=== PATIENT | male | born 1955 | race Caucasian/White ===

== ENCOUNTER 2020-03-20 11:20 | Day surgery (SDC) | payer MEDICARE, BC ==
[~2020-03-20] VITALS: Ht 182.9 cm; Wt 104.5 kg
[~2020-03-20 11:20] MED LIST: CELE100 PO; OMEP20ER PO
[2020-03-20] MEDS ORDERED: Loratadine10 MG PO (11:50)
== END 2020-03-20 14:25 | disposition home or self-care (01) ==
LOC: ORSCSDS 11:20
PROVIDERS: Podiatrist
PROC: 0SNQ0ZZ Release Left Toe Phalangeal Joint, Open Approach (ICD-10-PCS; principal; 2020-03-20 12:30)
PROC: 0QSP04Z Reposition Left Metatarsal with Internal Fixation Device, Open Approach (ICD-10-PCS; principal; 2020-03-20 12:30)
PROC: 0L8W0ZZ Division of Left Foot Tendon, Open Approach (ICD-10-PCS; principal; 2020-03-20 12:30)
DX: M77.42 Metatarsalgia, left foot (principal); M20.42 Other hammer toe(s) (acquired), left foot; Z87.891 Personal history of nicotine dependence; K21.9 Gastro-esophageal reflux disease without esophagitis; Z79.899 Other long term (current) drug therapy; G47.33 Obstructive sleep apnea (adult) (pediatric)
CPT/HCPCS: C1713; J0690; J1100; J2250; J2405; J2704; J3010; J7120

== ENCOUNTER 2022-12-15 11:03 | Day surgery (SDC) | payer MEDICARE, BC ==
[~2022-12-15] VITALS: Ht 182.9 cm; Wt 104.4 kg
[~2022-12-15 11:03] MED LIST changes: +Loratadine10 MG PO
[2022-12-15] MEDS ORDERED: Prinivil10 MG (11:34)
== END 2022-12-15 13:36 | disposition home or self-care (01) ==
LOC: ORSCSDS 11:03
PROVIDERS: Internal Medicine Gastroenterology
PROC: 0DJD8ZZ Inspection of Lower Intestinal Tract, Via Natural or Artificial Opening Endoscopic (ICD-10-PCS; principal; 2022-12-15 12:45)
DX: Z12.11 Encounter for screening for malignant neoplasm of colon (principal); Z86.010 Personal history of colon polyps; K57.50 Diverticulosis of both small and large intestine without perforation or abscess without bleeding; K64.8 Other hemorrhoids; Z98.84 Bariatric surgery status; I10 Essential (primary) hypertension; K21.9 Gastro-esophageal reflux disease without esophagitis; Z79.899 Other long term (current) drug therapy
CPT/HCPCS: J2704; J7040; J7120